=== PATIENT | female | born 1990 | race Two or more races ===

== ENCOUNTER 2018-11-22 18:14 | Emergency (ER) | payer MEDICAID ==
[2018-11-22] MEDS ORDERED: KETOROLAC TROMETHAMINE INJ 30 MG/ML VIAL ONE (18:47)
[2018-11-22] MEDS ORDERED: ONDANSETRON HCL/PF 4 MG/2 ML VIAL ONE (18:47)
[2018-11-22] MEDS ORDERED: IV NS 0.9% 1,000 ML BAG IV ONE (19:00)
[2018-11-22] MEDS ORDERED: KETOROLAC TROMETHAMINE INJ 30 MG/ML VIAL IV ONE (19:00)
[2018-11-22] MEDS ORDERED: ONDANSETRON HCL/PF 4 MG/2 ML VIAL IVP ONE (19:00)
[2018-11-22] MEDS ORDERED: IOHEXOL-350 100 ML VIAL IV ONE (20:14)
== END 2018-11-22 21:38 | disposition home or self-care (01) ==
DX: R11.2 Nausea with vomiting, unspecified (principal); R07.89 Other chest pain; N64.52 Nipple discharge; Z98.890 Other specified postprocedural states
CPT/HCPCS: 36415; 71275; 80048; 80076; 81001; 83690; 84484; 84703; 85025; 85730; 93005; 96361; 96374; 96375; 99284; J1885; J2405; J7030; Q9967